=== PATIENT | female | born 1990 | race Caucasian/White ===

== ENCOUNTER 2018-04-20 11:16 | Day surgery (SDC) | payer BC ==
[2018-04-18 16:41] VITALS: BMI 37.3
[~2018-04-20 11:16] MED LIST: LACTATED RINGERS 1,000 ML IV SCH
[2018-04-20 12:08] VITALS: TEMP 97.7
[2018-04-20] MEDS ORDERED: LIDOCAINE 1% 20 ML VIAL (10MG/ML) FOR IV START INTRADERMA ONE (12:17)
[2018-04-20] MEDS ORDERED: MIDAZOLAM 2 MG/2 ML VIAL ONE (12:37)
[2018-04-20] MEDS ORDERED: PROPOFOL 10 MG/ML 20 ML VIAL IV ONE (12:37)
[2018-04-20] MEDS ORDERED: GLYCOPYRROLATE 0.2 MG/ML 2 ML VIAL ONE (12:37)
[2018-04-20] MEDS ORDERED: LIDOCAINE 1% INJ 10MG/ML (20 ML MDV) ONE (12:37)
--- NOTE | 2018-04-20 13:03 | P.PCN ---
Date of Procedure: 04/20/18 Procedure(s) Performed: Procedure: Esophagogastroduodenoscopy and biopsy. Preoperative diagnosis: Heartburn and nausea. Postoperative diagnosis: 1. Small sliding hiatal hernia with no definite esophagitis or complicated reflux disease. 2. Mild antral gastritis. 3. Multiple biopsies obtained from the duodenum, antrum and esophagus. Preparation and sedation: Was provided by anesthesia. Brief clinical history: The patient is a 28-year-old female who is scheduled for this evaluation because of heartburn and nausea that she has been experiencing for the last 4 months or so. The patient has not responded to medical therapy. No alarm symptoms. This evaluation is to assess for peptic ulcer disease, complicated reflux or other pathology. Procedure: With the patient on her left lateral decubitus position and after informed consent and adequate sedation, I passed the Olympus-GIF 160 video upper endoscope through the cricopharyngeus down the esophagus. GE junction was around 39 cm from the incisors and there was a small sliding hiatal hernia. The esophagus did not show any evidence of esophagitis or complicated reflux disease. There was some whitish non-sticky exudates that could represent food debris. I obtained biopsies to rule out infectious etiology. The endoscope was then passed into the stomach which was insufflated with air and inspected in detail including the retroflex view in the cardia. There was minimal mottling and erythema in the antrum but no ulcers or erosions. Pyloric channel, duodenal bulb, post bulbar area and descending duodenum appeared within normal limits. Because of her symptoms, I obtained biopsies from the duodenum and antrum in addition to the esophageal biopsies, then the endoscope was withdrawn. The patient tolerated the procedure well. Plan: The patient was reassured. Will await biopsy results. She will follow- up with you as planned and further plans can be made based on her course and biopsy results. We would be happy to see in the future if her symptoms persist.
[2018-04-20 13:17] VITALS: RESP 16
[2018-04-20 13:30] VITALS: BP 102/89; PULSE 63
== END 2018-04-20 13:46 | disposition home or self-care (01) ==
LOC: ORWHC2ENDO 11:16
DX: K21.0 Gastro-esophageal reflux disease with esophagitis (principal); K29.50 Unspecified chronic gastritis without bleeding; K44.9 Diaphragmatic hernia without obstruction or gangrene; J44.9 Chronic obstructive pulmonary disease, unspecified; F17.210 Nicotine dependence, cigarettes, uncomplicated; Z88.1 Allergy status to other antibiotic agents
CPT/HCPCS: 81025; 88305; 43239; J2250; J2001; J2704